=== PATIENT | female | born 1980 | race American Indian/Alaskan Native ===

== ENCOUNTER 2017-04-06 01:06 | Emergency (ER) | payer OTHER ==
[2017-04-06 01:06] VITALS: BMI 31.6
[2017-04-06 01:25] VITALS: O2SAT 98
[2017-04-06] MEDS ORDERED: Albuterol 0.083% Inhal Sol (2.5 mg/3 mL) UD ONE (02:54)
[2017-04-06] MEDS ORDERED: Albuterol-Ipratrop 3 mg / 0.5 (3 ml) UD IH SCH (03:00)
[2017-04-06 03:45] VITALS: BP 139/85; PULSE 78; RESP 16; TEMP 97.8
--- NOTE | 2017-04-06 03:47 | C.PDOC ---
History Of Present Illness 36 year old female who presents to the ER with a complaint of congestion and cough for 2 weeks. Patient states she has pain to her back and sides when she coughs. Denies fever or SOB. Time Seen by Provider: 04/06/17 02:28 Chief Complaint (Nursing): Cough, Cold, Congestion History Per: Patient History/Exam Limitations: no limitations Onset/Duration Of Symptoms: Days Current Symptoms Are (Timing): Still Present Location Of Pain: Other (Sides and back) Sick Contacts (Context): None Associated Symptoms: Cough, Nasal Congestion. denies: Fever, Other (SOB) Ear Symptoms: Bilateral: None Recent travel outside of the [place]: No Past Medical History Reviewed: Historical Data, Nursing Documentation, Vital Signs Vital Signs: Last Vital Signs Temp 97.8 F 04/06/17 03:45 Pulse 78 04/06/17 03:45 Resp 16 04/06/17 03:45 BP 139/85 04/06/17 03:45 Pulse Ox 98 04/06/17 05:29 - Medical History PMH: Asthma, Bronchitis Surgical History: No Surg Hx Family History: States: Unknown Family Hx - Social History Hx Tobacco Use: Yes Hx Alcohol Use: Yes Hx Substance Use: No - Immunization History Hx Tetanus Toxoid Vaccination: Yes Hx Influenza Vaccination: Yes Hx Pneumococcal Vaccination: No Review Of Systems Constitutional: Positive for: Fever ENT: Positive for: Nose Congestion Cardiovascular: Negative for: Chest Pain Respiratory: Positive for: Cough. Negative for: Other (SOB) Physical Exam - Physical Exam Appears: Non-toxic, No Acute Distress Skin: Normal Color, Warm, Dry Head: Atraumatic, Normacephalic Eye(s): bilateral: Normal Inspection Nose: Normal, No Flaring, Other (Congestion) Oral Mucosa: Moist Throat: Normal, No Erythema, No Exudate Neck: Normal, Supple Chest: Symmetrical, No Tenderness Cardiovascular: Rhythm Regular, No Murmur Respiratory: Normal Breath Sounds, No Accessory Muscle Use, No Rales, Rhonchi, No Wheezing Gastrointestinal/Abdominal: Soft, No Tenderness Neurological/Psych: Oriented x3, Normal Speech, Normal Cognition ED Course And Treatment O2 Sat by Pulse Oximetry: 98 - Radiology CXR: Interpreted by Me, Viewed By Me CXR Interpretation: Yes: No Acute Disease Progress Note: CXR ordered. Nebulizer treatment, motrin, and prednisone administered. On reevaluation, patient is sleeping comfortably and is in no acute distress. Will discharge home with instructions to follow up with PMD. Reevaluation Time: 20:59 Reassessment Condition: Improved Disposition Counseled Patient/Family Regarding: Diagnosis, Need For Followup, Rx Given - Disposition Disposition: HOME/ ROUTINE Disposition Time: 03:45 Condition: STABLE Additional Instructions: Please follow up with PMD or in clinic Increase fluids Return to ER if worse Prescriptions: Albuterol HFA [Ventolin HFA 90 mcg/actuation (8 g)] 1 puff IH QID #1 inhaler Amoxicillin 500 mg PO TID #21 tab Benzonatate [Tessalon Perles] 100 mg PO TID #20 sgl Ibuprofen [Motrin] 600 mg PO Q6H #20 tab predniSONE [Prednisone] 40 mg PO DAILY #10 tab Instructions: Acute Bronchitis (ED) Forms: [employer] [facility] (Swedish) - Clinical Impression Clinical Impression: Acute bronchitis - Scribe Statement The provider has reviewed the documentation as recorded by the Scribe Jan Ge All medical record entries made by the Meliibmerlin were at my direction and personally dictated by me. I have reviewed the chart and agree that the record accurately reflects my personal performance of the history, physical exam, medical decision making, and the department course for this patient. I have also personally directed, reviewed, and agree with the discharge instructions and disposition.
--- NOTE | 2017-04-06 09:01 | RAD ---
HISTORY: cough, SOB COMPARISON: No prior. TECHNIQUE: Chest PA and lateral FINDINGS: LUNGS: No active pulmonary disease. PLEURA: No significant pleural effusion identified. No pneumothorax apparent. CARDIOVASCULAR: Normal. OSSEOUS STRUCTURES: No significant abnormalities. VISUALIZED UPPER ABDOMEN: Normal. OTHER FINDINGS: None. IMPRESSION: No active disease.
== END 2017-04-06 03:54 | disposition home or self-care (01) ==
LOC: C.ER 01:06
DX: J20.9 Acute bronchitis, unspecified (principal)

== ENCOUNTER 2018-02-13 07:42 | Emergency (ER) | payer MEDICAID, OTHER ==
[2018-02-13 07:42] VITALS: BMI 29.7
--- NOTE | 2018-02-13 08:48 | C.PDOC ---
History Of Present Illness MULTIPLE COMPLAINTS. CO PERSIST COUGH, L EYE LID SWELLING. MULT ER VISITS FOR SAME SINCE 01/18. past medical history of asthma/bronchitis, asthma, substance abuse, SMOKING. +HOMELESS NO NEW FEVER. CO CHRONIC B/L ANKLE PAIN AND SWELLING WORSE W WALKING. NO VISION CHANGE. PS WAS EVALUATED FOR EYE AND COUGH 1-2 WKS AGO EXAM NONTOXIC HEENT B/L EYES WNL; NO PERIORB EDEMA, ERYTHEMA; EOMI; NO GROSS VISION DEF; + NASAL REGINE LUNGS +BRONCHIAL REGINE ACTIVE COUGH NO EDEMA REMAINDER NEG MDM PS PENDING APPLICATION FOR HOUSING, STATES IS EXPOSED TO "ALOT OF COUGHING PEOPLE" IN CARE HOME. UNABLE TO FU CLINIC DUE TO PENDING MEDICAID APPLICATION. PT ADVISED MEDICAL DOCUMENTATION FOR CHRONIC CONDITIONS THAT IS NEEDED MUST BE PROVIDED BY CLINIC. Time Seen by Provider: 02/13/18 07:54 Chief Complaint (Nursing): Cough, Cold, Congestion History Per: Patient History/Exam Limitations: no limitations Onset/Duration Of Symptoms: Days Current Symptoms Are (Timing): Still Present Severity: Moderate Past Medical History Reviewed: Historical Data, Nursing Documentation, Vital Signs Vital Signs: Last Vital Signs Temp 98.5 F 02/13/18 09:18 Pulse 94 H 02/13/18 09:18 Resp 20 02/13/18 09:18 BP 117/74 02/13/18 09:18 Pulse Ox 98 02/13/18 09:18 - Medical History PMH: Asthma, Bronchitis Denies: Chronic Kidney Disease Other Surgeries: Hx of surgeries Family History: States: No Known Family Hx - Social History Hx Tobacco Use: Yes Hx Alcohol Use: Yes Hx Substance Use: No - Immunization History Hx Tetanus Toxoid Vaccination: Yes Hx Influenza Vaccination: Yes Hx Pneumococcal Vaccination: No Review Of Systems Except As Marked, All Systems Reviewed And Found Negative. Constitutional: Negative for: Fever, Chills Eyes: Positive for: Other (left eyelid swelling). Negative for: Vision Change Respiratory: Positive for: Cough Musculoskeletal: Positive for: Other (chronic bilateral ankle pain and swelling) Physical Exam - Physical Exam Appears: Non-toxic, No Acute Distress Skin: Normal Color, Warm, Dry Head: Atraumatic, Normacephalic Eye(s): bilateral: Normal Inspection (WNL, no periorbital edema, eythema, no gross vision defecit) Nose: Other (nasal congestion) Respiratory: Other (bronchial congestion, active cough, no edema) Neurological/Psych: Oriented x3, Normal Speech ED Course And Treatment O2 Sat by Pulse Oximetry: 99 (RA) Pulse Ox Interpretation: Normal - Radiology CXR: Interpreted by Me CXR Interpretation: Yes: No Acute Disease Medical Decision Making Medical Decision Making: Plan: --CXR --Albuterol --Motrin PO PS PENDING APPLICATION FOR HOUSING, STATES IS EXPOSED TO "ALOT OF COUGHING PEOPLE" IN CARE HOME. UNABLE TO FU CLINIC DUE TO PENDING MEDICAID APPLICATION. PT ADVISED MEDICAL DOCUMENTATION FOR CHRONIC CONDITIONS THAT IS NEEDED MUST BE PROVIDED BY CLINIC. Disposition Counseled Patient/Family Regarding: Studies Performed, Diagnosis, Need For Followup, Rx Given - Disposition Referrals: [facility] [Outside] [facility] [Outside] Disposition: HOME/ ROUTINE Disposition Time: 09:00 Condition: IMPROVED Additional Instructions: STOP SMOKING PERMANENTLY. FOLLOW UP CLINIC PREVIOUSLY ADVISED. Prescriptions: Benzonatate [Tessalon Perles] 200 mg PO TID PRN #15 sgl PRN Reason: Cough Ibuprofen [Motrin] 600 mg PO Q6 #30 tab Instructions: Cough, Child (DC) Forms: [employer] [facility] (Sami) - Clinical Impression Clinical Impression: Chronic cough, Chronic facial pain - Scribe Statement The provider has reviewed the documentation as recorded by the Dionte Charlton Provider Attestation: All medical record entries made by the Scribe were at my direction and personally dictated by me. I have reviewed the chart and agree that the record accurately reflects my personal performance of the history, physical exam, medical decision making, and the department course for this patient. I have also personally directed, reviewed, and agree with the discharge instructions and disposition.
[2018-02-13] MEDS ORDERED: Albuterol 0.083% Inhal Sol (2.5 mg/3 mL) UD INH STA (08:54)
[2018-02-13] MEDS ORDERED: Albuterol 0.083% Inhal Sol (2.5 mg/3 mL) UD ONE (09:02)
--- NOTE | 2018-02-13 09:03 | RAD ---
HISTORY: COMPARISON: 04/06/2017. TECHNIQUE: Chest PA and lateral FINDINGS: LINES AND TUBES: None. LUNG AND PLEURA: The lungs are well inflated and clear. No pleural effusion or pneumothorax. HEART AND MEDIASTINUM: The heart is not enlarged. The hilar and mediastinal contours are within normal limits. SKELETAL STRUCTURES: The bony structures are within normal limits for the patient's age. VISUALIZED UPPER ABDOMEN: Normal. OTHER FINDINGS: None. IMPRESSION: No active pulmonary disease.
[2018-02-13 09:18] VITALS: BP 117/74; PULSE 94; RESP 20; TEMP 98.5
[2018-02-13 10:06] VITALS: O2SAT 99
== END 2018-02-13 09:35 | disposition home or self-care (01) ==
LOC: C.ER 07:42
DX: R05 Cough (principal); R51 Headache; G89.29 Other chronic pain; J45.909 Unspecified asthma, uncomplicated; F17.210 Nicotine dependence, cigarettes, uncomplicated

== ENCOUNTER 2018-03-20 05:11 | Emergency (ER) | payer MEDICAID, OTHER ==
[2018-03-20 05:11] VITALS: BMI 26.6
--- NOTE | 2018-03-20 05:43 | C.PDOC ---
History Of Present Illness 37 yo female come in for evaluation of eyes itchiness developed for past week associated with some itchy rash to face. Pt sts, " probably something from alf". Pt also request evaluation of rash over inner thigh, suprpibuc developed for past 2 weeks. Pt admits, was seen in multiple hospitals for rash, use Nystatin cream without improvement. Otherwise, pt denies fever, chills, blurry vision, FB sensation, light sensitivity, denies contact use, throat swelling or tightness, drooling, CP, SOB, dyspnea, wheezing, abd. pain, N/V, denies UTI sx. Ambulate to ED for evaluation, not in nay apparent distress. Time Seen by Provider: 03/20/18 05:17 Chief Complaint (Nursing): Eye Problem History Per: Patient Past Medical History Reviewed: Historical Data, Nursing Documentation, Vital Signs Vital Signs: Last Vital Signs Temp 97.3 F L 03/20/18 05:14 Pulse 75 03/20/18 05:14 Resp 22 03/20/18 05:14 BP 127/87 03/20/18 05:14 Pulse Ox 100 03/20/18 05:47 - Medical History PMH: Asthma, Bronchitis Denies: Chronic Kidney Disease Family History: States: Unknown Family Hx - Social History Hx Tobacco Use: Yes Hx Alcohol Use: Yes Hx Substance Use: No - Immunization History Hx Tetanus Toxoid Vaccination: No Hx Influenza Vaccination: No Hx Pneumococcal Vaccination: No Review Of Systems Except As Marked, All Systems Reviewed And Found Negative. Constitutional: Negative for: Fever, Chills Eyes: Positive for: Other (B/L itchiness). Negative for: Vision Change, Eyelid Inflammation, Redness ENT: Negative for: Ear Discharge, Nose Discharge, Nose Congestion, Mouth Pain, Mouth Swelling, Throat Pain, Throat Swelling Cardiovascular: Negative for: Chest Pain, Palpitations Respiratory: Negative for: Cough, Shortness of Breath, Wheezing Gastrointestinal: Negative for: Nausea, Vomiting, Abdominal Pain, Diarrhea Genitourinary: Negative for: Dysuria, Frequency, Incontinence Skin: Positive for: Rash Neurological: Negative for: Headache, Dizziness Physical Exam - Physical Exam Appears: Well, Non-toxic, No Acute Distress Skin: Normal Color, Warm, Rash (scattered macular/papular erythematous rash to B /L cheeks, no edema, no discharge.), Other (diffuse erythematous rash B/L inner thigh, well demarcated. No weeping, no discharge,no proximal streaking ) Eye(s): bilateral: PERRL, EOMI (no pain or limitation on extraocular movemnet.) , Other (no periorbital edema or erythema, mild conjunctivall injection, no discharge.) Ear(s): Bilateral: Normal Nose: No Flaring, No Discharge Oral Mucosa: Moist, No Drooling Tongue: No Swelling Lips: No Swelling Throat: No Erythema, No Drooling, Other (uvula midline, no edema.) Neck: Trachea Midline, Supple Cardiovascular: Rhythm Regular Respiratory: No Decreased Breath Sounds, No Accessory Muscle Use, No Stridor, No Wheezing Gastrointestinal/Abdominal: Soft, No Tenderness, No Distention, No Guarding Back: No CVA Tenderness Extremity: Normal ROM, No Pedal Edema, No Deformity, No Swelling Neurological/Psych: Oriented x3, Normal Speech ED Course And Treatment O2 Sat by Pulse Oximetry: 100 Pulse Ox Interpretation: Normal Progress Note: On re-eval, afebrile, hemodynamicaly stable. PulseOx 100%RA. B/ L eyes: exam c/w mild allergic conjunctivitis, scattered erythematous macular rash on face. NO periorbital edema or erythema, no blurry vision, no eye discharge, NO pain or limitation on extraocular movement. ENT: no acute findings, uvula midline, no edmea. Lungs: CTA B/L, BS equal B/L. Skin: exam c/ w tinea cruris, no evidence of cellulitis or superimposed infection. Pt advised. ref. to F/u with PMD, Derm in 2-3 dyas for re-eval. Return to ED if any worsening or new changes. Disposition Counseled Patient/Family Regarding: Diagnosis, Need For Followup, Rx Given - Disposition Referrals: [facility] [Outside] Disposition: HOME/ ROUTINE Disposition Time: 05:46 Condition: STABLE Prescriptions: Clotrimazole [Athletic Foot Cream] 1 gm TP BID #1 tube DiphenhydrAMINE [Benadryl] 25 mg PO BID #10 cap Famotidine [Pepcid] 20 mg PO BID #10 tab Prednisone [Deltasone] 40 mg PO DAILY #6 tablet Instructions: Ara (HECTOR)Patrick Itch Forms: [facility] (Gambian) - Clinical Impression Clinical Impression: Allergic conjunctivitis, Tinea cruris
[2018-03-20] MEDS ORDERED: Clotrimazole 1% Cream 15 GM TUBE TOP STA (06:07)
[2018-03-20 06:38] VITALS: BP 120/76; PULSE 76; RESP 20; TEMP 98; O2SAT 99
== END 2018-03-20 06:38 | disposition home or self-care (01) ==
LOC: C.ER 05:11
DX: H10.13 Acute atopic conjunctivitis, bilateral (principal); B35.6 Tinea cruris

== ENCOUNTER 2018-04-29 20:52 | Emergency (ER) | payer MEDICAID ==
[2018-04-29 20:52] VITALS: BMI 26.6
[2018-04-29 21:21] VITALS: BP 124/82; PULSE 97; RESP 18; TEMP 98.9; O2SAT 99
--- NOTE | 2018-04-29 21:45 | C.PDOC ---
History Of Present Illness 37 year old female was brought into the ED by EMS for evaluation of left lower back pain, left-sided flank pain and left ankle pain s/p fall jury that happened yesterday. Patient also reports a non-productive cough. Per triage nurse, patient seen ambulating with no apparent discomfort, however, walks with a limp when asked to walk for evaluation. Time Seen by Provider: 04/29/18 21:26 Chief Complaint (Nursing): Lower Extremity Problem/Injury History Per: Patient History/Exam Limitations: no limitations Onset/Duration Of Symptoms: Days Current Symptoms Are (Timing): Still Present Past Medical History Reviewed: Historical Data, Nursing Documentation, Vital Signs Vital Signs: Last Vital Signs Temp 98.9 F 04/29/18: Pulse 97 H 04/29/18: Resp 18 04/29/18 21:18 BP 124/82 04/29/18: Pulse Ox 99 04/29/18 21:18 - Medical History PMH: Asthma, Bronchitis, HTN Denies: Chronic Kidney Disease Family History: States: Unknown Family Hx - Social History Hx Tobacco Use: Yes Hx Alcohol Use: Yes Hx Substance Use: No - Immunization History Hx Tetanus Toxoid Vaccination: Yes Hx Influenza Vaccination: Yes Hx Pneumococcal Vaccination: No Review Of Systems Constitutional: Negative for: Fever Respiratory: Positive for: Cough. Negative for: Shortness of Breath, Sputum Gastrointestinal: Positive for: Other (left-sided flank pain. ). Negative for: Abdominal Pain Musculoskeletal: Positive for: Back Pain (left lower. ), Other (left ankle pain.) Skin: Negative for: Rash, Bruising Neurological: Negative for: Weakness, Numbness Physical Exam - Physical Exam Appears: Non-toxic, No Acute Distress Skin: Warm, Dry Head: Atraumatic, Normacephalic Neck: No Midline Cervical Tenderness, No Paracervical Tenderness, Supple Chest: Symmetrical, No Deformity, No Tenderness Cardiovascular: Rhythm Regular, No Murmur Gastrointestinal/Abdominal: Soft, No Tenderness Back: No CVA Tenderness, No Vertebral Tenderness, Paraspinal Tenderness (to the left side back) Extremity: Tenderness (to the left lateral ankle. ), No Calf Tenderness, Capillary Refill (less than 2 seconds.), No Deformity, No Swelling Pulses: Left Dorsalis Pedis: Normal, Right Dorsalis Pedis: Normal Neurological/Psych: Oriented x3, Normal Speech, Normal Motor, Normal Sensation, Normal Reflexes Gait: Steady ED Course And Treatment O2 Sat by Pulse Oximetry: 99 (RA) Pulse Ox Interpretation: Normal Medical Decision Making Medical Decision Making: Plan: --Urine HCG --Given Toradol. Disposition Counseled Patient/Family Regarding: Diagnosis, Need For Followup, Rx Given - Disposition Referrals: [facility] [Outside] Disposition: HOME/ ROUTINE Disposition Time: 22:15 Condition: GOOD Additional Instructions: Follow up in medical clinic, Call for an appointment, Take Tylenol as prescribed. Prescriptions: Acetaminophen [Tylenol 325mg tab] 650 mg PO Q6 #30 tab Instructions: Low Back Pain (DC) Forms: [employer] [facility] (Gabonese), General Discharge Instructions - Clinical Impression Clinical Impression: Low back pain - PA / MANAGEMENT PROFESSOR / Resident Statement MD/DO has reviewed & agrees with the documentation as recorded. - Scribe Statement The provider has reviewed the documentation as recorded by the Scribe (Rupinder Pierre) All medical record entries made by the Scribe were at my direction and personally dictated by me. I have reviewed the chart and agree that the record accurately reflects my personal performance of the history, physical exam, [facility] decision making, and the department course for this patient. I have also personally directed, reviewed, and agree with the discharge instructions and disposition.
== END 2018-04-29 22:45 | disposition home or self-care (01) ==
LOC: C.ER 20:52
DX: M54.5 Low back pain (principal)
CPT/HCPCS: 96372; 99283; J1885

== ENCOUNTER 2018-04-29 22:44 | Emergency (ER) | payer MEDICAID ==
[2018-04-29 22:45] VITALS: BMI 26.6
[2018-04-29 23:10] VITALS: BP 146/92; PULSE 71; RESP 19; TEMP 98.6; O2SAT 97
== END 2018-04-30 00:24 | disposition left against medical advice (07) ==
LOC: C.ER 22:44
DX: Z02.89 Encounter for other administrative examinations (principal); R10.9 Unspecified abdominal pain

== ENCOUNTER 2018-06-01 | Emergency (ER) | payer MEDICAID ==
[2018-06-01 00:02] VITALS: BMI 26.6
--- NOTE | 2018-06-01 00:48 | C.PDOC ---
History Of Present Illness 37 year old female presents to the ED complaining of non productive cough, nasal congestion, and sneezing for the past few days. Denies any fever, chills, ear pain, throat pain, n/v/d, or any other symptoms. Denies sick contacts or recent travels. Chief Complaint (Nursing): Cough, Cold, Congestion History Per: Patient History/Exam Limitations: no limitations Onset/Duration Of Symptoms: Days Current Symptoms Are (Timing): Still Present Location Of Pain: None Sick Contacts (Context): None Associated Symptoms: Cough, Nasal Congestion. denies: Fever, Chills, Sore Throat, Nausea, Vomiting Ear Symptoms: Bilateral: None Past Medical History Reviewed: Historical Data, Nursing Documentation, Vital Signs Vital Signs: Last Vital Signs Temp 97.7 F 06/01/18 00:10 Pulse 82 06/01/18 00:10 Resp 20 06/01/18 00:10 BP 139/90 06/01/18 00:10 Pulse Ox 100 06/01/18 00:10 - Medical History PMH: Asthma, Bronchitis, HTN Denies: Chronic Kidney Disease Other Surgeries: Hx of surgeries Family History: States: No Known Family Hx - Social History Hx Tobacco Use: Yes Hx Alcohol Use: Yes Hx Substance Use: No - Immunization History Hx Tetanus Toxoid Vaccination: No Hx Influenza Vaccination: No Hx Pneumococcal Vaccination: No Review Of Systems Except As Marked, All Systems Reviewed And Found Negative. Constitutional: Negative for: Fever, Chills ENT: Positive for: Nose Congestion. Negative for: Ear Pain, Throat Pain, Throat Swelling Respiratory: Positive for: Cough Gastrointestinal: Negative for: Nausea, Vomiting, Diarrhea Physical Exam - Physical Exam Appears: Non-toxic Skin: Warm, Dry, No Rash Head: Normacephalic Eye(s): bilateral: Normal Inspection Ear(s): Bilateral: Normal Nose: Other (nasal congestion ) Oral Mucosa: Moist Lips: Normal Appearing Gingiva: Normal Appearing Throat: Normal, No Erythema, No Exudate Neck: Normal ROM, Supple Chest: Symmetrical Cardiovascular: Rhythm Regular Respiratory: No Rales, Rhonchi, No Wheezing Extremity: Normal ROM Neurological/Psych: Oriented x3, Normal Speech Gait: Steady ED Course And Treatment - Laboratory Results Result Diagrams: 06/01/18 00:58 ECG: Interpreted By Me, Viewed By Me ECG Rhythm: Sinus Rhythm ECG Interpretation: Normal, No Acute Changes Interpretation Of ECG: NSR, normal tracings. Rate From EC O2 Sat by Pulse Oximetry: 100 (RA) Pulse Ox Interpretation: Normal - Radiology CXR: Interpreted by Me, Viewed By Me CXR Interpretation: Yes: No Acute Disease, Other (normal chest film). No: Infiltrates Medical Decision Making Medical Decision Making: Plan - EKG - Bloodwork - CXR Disposition Counseled Patient/Family Regarding: Diagnosis - Disposition Referrals: [facility] [Outside] Disposition: HOME/ ROUTINE Disposition Time: :25 Condition: STABLE Prescriptions: Azithromycin [Zithromax] 250 mg PO DAILY #5 tab Desloratadine/Pseudoephedrine [Clarinex-D 12 Hour Tablet] 1 cap.ec PO BID #12 tbmp.12hr Instructions: Upper Respiratory Infection (ED) Forms: [facility] (Slovak) - POA Present On Arrival: None - Clinical Impression Clinical Impression: URI (upper respiratory infection) - Scribe Statement The provider has reviewed the documentation as recorded by the Scribmerlin Hernandez All medical record entries made by the Scribe were at my direction and personally dictated by me. I have reviewed the chart and agree that the record accurately reflects my personal performance of the history, physical exam, medical decision making, and the department course for this patient. I have also personally directed, reviewed, and agree with the discharge instructions and disposition.
[2018-06-01 01:19] LABS: BASO # 0.3 K/uL (0.0-0.2); BASO % 3.5 % (0.0-2.0); EOS # 0.5 K/uL (0.0-0.7); HEMOGLOBIN 11.4 g/dL (11.0-16.0); LYMPH # 1.3 K/uL (1.0-4.3); LYMPH % 15.8 % (20.0-40.0); MEAN CELL VOLUME 87.2 fL (81.0-99.0); MEAN CORPUSCULAR HEMOGLOBIN 29.2 pg (27.0-31.0); MEAN CORPUSCULAR HGB CONC 33.5 g/dL (33.0-37.0); MEAN PLATELET VOLUME 8.3 fL (7.2-11.7); MONO # 0.7 K/uL (0.0-0.8); MONO % 8.6 % (0.0-10.0); NEUT # 5.5 K/uL (1.8-7.0); NEUT % 66.1 % (50.0-75.0); NRBC % 0.1 % (0.0-2.0); PLATELET COUNT 312 K/uL (130-400); RBC 3.92 Mil/uL (3.80-5.20); RED CELL DISTRIBUTION WIDTH 14.2 % (11.5-14.5); WHITE BLOOD COUNT 8.3 K/uL (4.8-10.8)
[2018-06-01 01:29] LABS: ALB/GLOB RATIO 1.4 (1.0-2.1); ALT/SGPT 45 U/L (9-52); AST/SGOT 33 U/L (14-36); BLOOD UREA NITROGEN 18 mg/dL (7-17); CALCIUM 8.9 mg/dl (8.6-10.4); GFR NON-AFRICAN AMERICAN > 60
[2018-06-01 01:43] LABS: BASOPHIL 2 % (0-2); EOSINOPHIL 2 % (0-4); LYMPHOCYTE 30 % (20-40); MONOCYTE 7 % (0-10); NEUTROPHIL 54 % (50-75); PLATELET ESTIMATE NORMAL (NORMAL); REACTIVE LYMPHOCYTES 5 % (0-0); TOTAL CELLS COUNTED 100
[2018-06-01 02:46] VITALS: BP 118/78; PULSE 74; RESP 14; TEMP 97.8; O2SAT 96
--- NOTE | 2018-06-01 09:39 | RAD ---
Date of service: 06/01/2018 HISTORY: Shortness of breath COMPARISON: 02/13/2018 TECHNIQUE: Chest PA and lateral FINDINGS: LUNGS: No active pulmonary disease. PLEURA: No significant pleural effusion identified. No pneumothorax apparent. CARDIOVASCULAR: No aortic atherosclerotic calcification present. Normal cardiac size. OSSEOUS STRUCTURES: No significant abnormalities. VISUALIZED UPPER ABDOMEN: Normal. OTHER FINDINGS: None. IMPRESSION: No active disease.
--- NOTE | 2018-06-03 21:38 | CARD ---
APPROVED REPORT Date of service: 06/01/2018 EKG Measurement Heart [id number] <Conclusion> Normal sinus rhythm Normal ECG
== END 2018-06-01 02:46 | disposition home or self-care (01) ==
LOC: C.ER
DX: J06.9 Acute upper respiratory infection, unspecified (principal); I10 Essential (primary) hypertension

== ENCOUNTER 2018-09-25 13:01 | Emergency (ER) | payer MEDICAID, OTHER ==
[2018-09-25 13:01] VITALS: BMI 26.6
[2018-09-25 13:21] VITALS: BP 163/113; PULSE 92; RESP 18; TEMP 99.4; O2SAT 100
--- NOTE | 2018-09-25 13:47 | C.PDOC ---
History Of Present Illness 37 year old female brought in by ambulance to the ED with left foot and ankle pain since yesterday. Patient states that yesterday she twisted her ankle. She was seen in [facility] and and was vague about having imaging done and states she was given Motrin. She denies pain or trauma to any other area, weakness, and numbness. Time Seen by Provider: 09/25/18 13:05 Chief Complaint (Nursing): Lower Extremity Problem/Injury History Per: Patient History/Exam Limitations: no limitations Onset/Duration Of Symptoms: Days (1) Current Symptoms Are (Timing): Still Present - Ankle/Foot Description Of Injury: Twisted Past Medical History Reviewed: Historical Data, Nursing Documentation, Vital Signs Vital Signs: Last Vital Signs Temp 99.4 F 09/25/18 13:09 Pulse 92 H 09/25/18 13:09 Resp 18 09/25/18 13:09 BP 163/113 H 09/25/18 13:09 Pulse Ox 100 09/25/18 13:09 - Medical History PMH: Asthma, Bronchitis, HTN Denies: Chronic Kidney Disease Surgical History: No Surg Hx Family History: States: Unknown Family Hx - Social History Hx Tobacco Use: Yes Hx Alcohol Use: Yes Hx Substance Use: Yes - Immunization History Hx Tetanus Toxoid Vaccination: No Hx Influenza Vaccination: No Hx Pneumococcal Vaccination: No Review Of Systems Constitutional: Negative for: Fever, Chills, Weakness Cardiovascular: Negative for: Chest Pain Gastrointestinal: Negative for: Abdominal Pain Musculoskeletal: Positive for: Leg Pain (left foot and ankle pain) Neurological: Negative for: Weakness, Numbness, Dizziness Physical Exam - Physical Exam Appears: Agitated, Other (bizarre) Skin: Normal Color, Warm, Dry Head: Atraumatic, Normacephalic Neck: Normal ROM, Supple Chest: Symmetrical, No Deformity Cardiovascular: Rhythm Regular, No Murmur Respiratory: No Accessory Muscle Use, No Rales, No Rhonchi, No Wheezing Gastrointestinal/Abdominal: Soft, No Tenderness Extremity: Tenderness (left ankle tender to palpation diffusely), No Calf Tenderness, Capillary Refill (<2 seconds) Pulses: Left Dorsalis Pedis: Normal, Right Dorsalis Pedis: Normal Neurological/Psych: Oriented x3 ED Course And Treatment O2 Sat by Pulse Oximetry: 100 (in RA) Progress Note: Xrays of left foot and ankle ordered, and tylenol ordered. 1:45pm- Patient refusing tylenol or Xrays. She will be placed in dat wrap, ortho shoe and given crutches. Patient instructed to follow up with podiatry within 1 week. 2:15PM- Another attempt made at Xrays, patient refusing again. Disposition Counseled Patient/Family Regarding: Diagnosis, Need For Followup, Rx Given - Disposition Referrals: [facility] at [facility] [Outside] Podiatry Clinic [Outside] Disposition: HOME/ ROUTINE Disposition Time: 14:15 Condition: STABLE Additional Instructions: FOLLOW UP WITH PODIATRY WITHIN 1 WEEK USE MOTRIN OR TYLENOL NEEDED RETURN TO ER IF SYMPTOMS WORSEN Prescriptions: Acetaminophen [Tylenol 325mg tab] 650 mg PO Q6 PRN #30 tab PRN Reason: pain/fever Instructions: Ankle Sprain (DC), Foot Sprain (DC) Forms: [employer] (Lebanese) Print Language: THAI - Clinical Impression Clinical Impression: Left ankle injury, Injury of left foot, Care refused by patient - Scribe Statement The provider has reviewed the documentation as recorded by the Scribe (Reina Montana) All medical record entries made by the Scribe were at my direction and personally dictated by me. I have reviewed the chart and agree that the record accurately reflects my personal performance of the history, physical exam, medical decision making, and the department course for this patient. I have also personally directed, reviewed, and agree with the discharge instructions and disposition.
== END 2018-09-25 15:11 | disposition home or self-care (01) ==
LOC: C.ER 13:01
DX: S99.912A Unspecified injury of left ankle, initial encounter (principal); S99.922A Unspecified injury of left foot, initial encounter; X50.1XXA Overexertion from prolonged static or awkward postures, initial encounter

== ENCOUNTER 2018-09-25 21:44 | Emergency (ER) | payer MEDICAID ==
[2018-09-25 21:44] VITALS: BMI 26.6
[2018-09-25 22:04] VITALS: BP 130/86; PULSE 84; RESP 20; TEMP 98.2; O2SAT 98
== END 2018-09-25 22:00 | disposition left against medical advice (07) ==
LOC: C.ER 21:44
DX: Z02.89 Encounter for other administrative examinations (principal); M79.673 Pain in unspecified foot

== ENCOUNTER 2018-11-15 00:06 | Emergency (ER) | payer MEDICAID, OTHER ==
[2018-11-15 00:08] VITALS: BMI 26.6
--- NOTE | 2018-11-15 03:51 | C.PDOC ---
History Of Present Illness 38 year old female, 7 weeks , presents to the ED c/o lower back pain. Patient reports she usually sleeps in a chair at . [facility] because they are not enough beds. Patient is requesting for a place to sleep. Patient also c/o mild cough that started today. Patient denies fever, chills, headache, nausea, vomit, CP, SOB, abdominal pain, vaginal bleeding, vaginal discharge. Time Seen by Provider: 11/15/18 01:03 Chief Complaint (Nursing): Cough, Cold, Congestion History Per: Patient History/Exam Limitations: no limitations Onset/Duration Of Symptoms: Days Current Symptoms Are (Timing): Still Present Recent travel outside of the [place]: No Additional History Per: Patient Past Medical History Reviewed: Historical Data, Nursing Documentation, Vital Signs Vital Signs: Last Vital Signs Temp 98.0 F 11/15/18 00:36 Pulse 86 11/15/18 00:36 Resp 18 11/15/18 00:36 BP 131/80 11/15/18 00:36 Pulse Ox 100 11/15/18 00:36 - Medical History PMH: Asthma, Bronchitis, HTN Denies: Chronic Kidney Disease Surgical History: No Surg Hx Family History: States: Unknown Family Hx - Social History Hx Tobacco Use: Yes Hx Alcohol Use: No Hx Substance Use: Yes (MARIJUANA) - Immunization History Hx Tetanus Toxoid Vaccination: No Hx Influenza Vaccination: No Hx Pneumococcal Vaccination: No Review Of Systems Constitutional: Negative for: Fever, Chills Cardiovascular: Negative for: Chest Pain Respiratory: Positive for: Cough. Negative for: Shortness of Breath Gastrointestinal: Negative for: Nausea, Vomiting, Abdominal Pain Skin: Negative for: Rash Neurological: Negative for: Weakness, Numbness, Headache, Dizziness Physical Exam - Physical Exam Appears: Non-toxic, No Acute Distress Skin: Normal Color, Warm, Dry Head: Atraumatic, Normacephalic Eye(s): bilateral: Normal Inspection Oral Mucosa: Moist Neck: Normal ROM, Supple Chest: Symmetrical Cardiovascular: Rhythm Regular Respiratory: Normal Breath Sounds, No Rales, No Rhonchi, No Wheezing Gastrointestinal/Abdominal: Soft, No Tenderness, No Guarding, No Rebound Extremity: Normal ROM, No Tenderness, No Swelling Neurological/Psych: Oriented x3, Normal Speech, Normal Cognition Gait: Steady ED Course And Treatment O2 Sat by Pulse Oximetry: 100 (On RA) Pulse Ox Interpretation: Normal Progress Note: Patient is resting comfortably, and is in no acute distress, denies any c/o of back pain at this time, no abd pain or OB c/o. Pt is stable for d/c and will continue OB appointments. Disposition - Disposition Referrals: [facility] at [facility] [Outside] Disposition: HOME/ ROUTINE Disposition Time: 05:24 Condition: STABLE Additional Instructions: Please keep appointments with your OB Return to ER if worse Forms: [employer] ([employer]) - Clinical Impression Clinical Impression: Back sprain, Homeless single person - PA / [employer] / Resident Statement MD/DO has reviewed & agrees with the documentation as recorded. - Scribe Statement The provider has reviewed the documentation as recorded by the Scribe Efren Zapata All medical record entries made by the Scribe were at my direction and personally dictated by me. I have reviewed the chart and agree that the record accurately reflects my personal performance of the history, physical exam, medical decision making, and the department course for this patient. I have also personally directed, reviewed, and agree with the discharge instructions and disposition.
[2018-11-15 06:41] VITALS: BP 132/80; PULSE 84; RESP 22; TEMP 98; O2SAT 98
== END 2018-11-15 06:39 | disposition home or self-care (01) ==
LOC: C.ER 00:06
DX: S33.5XXA Sprain of ligaments of lumbar spine, initial encounter (principal); X58.XXXA Exposure to other specified factors, initial encounter; Z59.0 Homelessness

== ENCOUNTER 2018-12-06 03:18 | Emergency (ER) | payer MEDICAID, OTHER ==
[2018-12-06 03:18] VITALS: BMI 26.6
[2018-12-06 03:48] VITALS: BP 131/82; PULSE 87; RESP 20; TEMP 97.7; O2SAT 100
--- NOTE | 2018-12-06 04:06 | C.PDOC ---
History Of Present Illness 38 year old female, 8 weeks , presents to the ED c/o dry cough and congestion for the past 1 day. Patient denies fever, chills, CP, SOB, palpitations, nausea, vomit, abdominal pain, rash, dysuria, hematuria, vaginal bleeding vaginal discharge. Time Seen by Provider: 12/06/18 03:49 Chief Complaint (Nursing): Cough, Cold, Congestion History Per: Patient History/Exam Limitations: no limitations Onset/Duration Of Symptoms: Days (1) Current Symptoms Are (Timing): Still Present Location Of Pain: Throat Sick Contacts (Context): None Associated Symptoms: Cough, Sinus Drainage, Nasal Congestion Ear Symptoms: Bilateral: None Recent travel outside of the [place]: No Additional History Per: Patient Past Medical History Reviewed: Historical Data, Nursing Documentation, Vital Signs Vital Signs: Last Vital Signs Temp 97.7 F 12/06/18 03:34 Pulse 87 12/06/18 03:34 Resp 20 12/06/18 03:34 BP 131/82 12/06/18 03:34 Pulse Ox 100 12/06/18 03:34 Primary Care Provider: FAMILY PROVIDER,NO - Medical History PMH: Asthma, Bronchitis, HTN Denies: Chronic Kidney Disease Surgical History: Family History: States: Unknown Family Hx - Social History Hx Tobacco Use: Yes Hx Alcohol Use: No Hx Substance Use: Yes (MARIJUANA) - Immunization History Hx Tetanus Toxoid Vaccination: No Hx Influenza Vaccination: No Hx Pneumococcal Vaccination: No Review Of Systems Constitutional: Negative for: Fever, Chills ENT: Positive for: Nose Discharge, Nose Congestion Cardiovascular: Negative for: Chest Pain Respiratory: Positive for: Cough. Negative for: Shortness of Breath Gastrointestinal: Negative for: Nausea, Vomiting, Abdominal Pain Genitourinary: Negative for: Vaginal Discharge, Vaginal Bleeding Skin: Negative for: Rash Neurological: Negative for: Weakness, Numbness, Headache Physical Exam - Physical Exam Appears: Non-toxic, No Acute Distress Skin: Normal Color, Warm, Dry Head: Atraumatic, Normacephalic Eye(s): bilateral: Normal Inspection Neck: Normal ROM, Supple Chest: Symmetrical Cardiovascular: Rhythm Regular Respiratory: Normal Breath Sounds, No Rales, No Rhonchi, No Wheezing Gastrointestinal/Abdominal: Soft, No Tenderness, No Guarding, No Rebound Extremity: Normal ROM, No Tenderness, No Swelling Neurological/Psych: Oriented x3, Normal Speech, Normal Cognition Gait: Steady ED Course And Treatment O2 Sat by Pulse Oximetry: 100 (ON RA) Pulse Ox Interpretation: Normal Progress Note: Upon discharge patient states she wants to sleep. Patient became loud, aggressive, foul mouth towards the staff. Patient was escorted out of the ED by security. 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 - Scribe Statement The provider has reviewed the documentation as recorded by the Scribe Efren Zapata All medical record entries made by the Scribe were at my direction and personally dictated by me. I have reviewed the chart and agree that the record accurately reflects my personal performance of the history, physical exam, medical decision making, and the department course for this patient. I have also personally directed, reviewed, and agree with the discharge instructions and disposition.
== END 2018-12-06 04:32 | disposition home or self-care (01) ==
LOC: C.ER 03:18
DX: O99.511 Diseases of the respiratory system complicating pregnancy, first trimester (principal); Z3A.08 8 weeks gestation of pregnancy